=== PATIENT | female | born 1995 | race Caucasian/White ===

== ENCOUNTER → 2016-05-05 | Outpatient (CLI) | payer MEDICAID | LOC: FIMAGING 14:23 | PROVIDERS: ATTEND Registered Nurse | DX: N83.292 Other ovarian cyst, left side (principal); Z97.5 Presence of (intrauterine) contraceptive device ==

== ENCOUNTER → 2016-07-19 | Outpatient (CLI) | payer MEDICAID | LOC: FIMAGING 11:16 | PROVIDERS: ATTEND Registered Nurse | DX: R10.32 Left lower quadrant pain (principal); Z87.42 Personal history of other diseases of the female genital tract ==